=== PATIENT | female | born 1955 | race Caucasian/White ===

== ENCOUNTER 2020-06-03 07:58 | Outpatient (RCR) | payer MEDICARE, BC, SELFPAY ==
--- NOTE | 2020-06-03 09:04 | PTOPEVAL ---
Thank you for referring Margo Silvestre to [facility].? The patient is scheduled to be seen for therapy? __3__x/week for 9 visits. Please review, sign, date and return this plan of care JA. I agree with and certify that the following plan of care is medically necessary. Referring Physician Date Admitting Provider: Attending Provider: Kelly Engel, Referring Provider: *PT Outpatient Evaluation Start: 06/03/20 08:05 Freq: Status: Active Protocol: Document 06/03/20 08:06 ROX (Rec: 06/03/20 09:03 ROX [id number]) Therapy Assessment Status Assessment Status Assessment Status Evaluation Evaluation Information Problem Diagnosis 01/31/20 Subjective Information Pt. reports she started Query Text:As Reported By Patient/ experiencing sharp pain in the Family arch of the left foot. She reports that she has also noted pain on the outside of the left foot. She reports undergoing MRI which revealed inflammation in the left foot. She has not performed any specific exercise and only has been using ibuprofen. She reports that pain remains daily in the left foot. She states that her goal is to decrease her pain. Prior Level of Function Comments Additional Prior Level of Function Prior to January pt. had no Comments difficulty with walking. She reports she cannot walk around the block right now, but prior to the January onset she was able to walk for miles. Pain Assessment Pain Scale Pain Scale Used Numeric (1 - 10) Self Report Pain Assessment Left Foot/Feet Reported Pain Level 1 Pain Description Aching,Sharp Pain Frequency Continuous Lowest Pain Intensity 1 Greatest Pain Intensity 8 Pain Score Pain Score 1: Self Report Interventions Used Interventions Used By Clinicians Exercise,Manual Therapy Techniques Lower Extremity Range of Motion General Lower Extremity Range of Motion Gross Lower Extremity Range of Motion -ankle dorsiflexion with full Comments knee extension left 12 degrees -ankle dorsiflexion with full knee extension right 12 degrees -21 degrees left ankle
== END 2020-06-25 13:54 | disposition home or self-care (01) ==
LOC: CHSPT 07:58
PROVIDERS: PCP Family Medicine; Visit Provider Family Medicine
DX: M79.672 Pain in left foot (principal)
CPT/HCPCS: 97110; 97112; 97161; 97530

== ENCOUNTER 2022-09-02 10:59 | Outpatient (RCR) | payer MEDICARE, BC, SELFPAY ==
--- NOTE | 2022-09-02 11:47 | PTOPEVAL1 ---
Assessment and note entered by Cleveland Mallory Evaluation Information Assessment Status Evaluation Diagnosis s/p left TKA Onset 08/10/22 Subjective Information Pt. reports she underwent left TKA on 08/10/22. She has been doing HH therapy. She is currently using a cane. She has returned to driving short distances. She reports she still cannot walk any significant distance. She reports that her pain is currently a 3/10. She reports that pain worsens with activity. She states that her goal is to walk long distance and return to walking normal. Reported Pain Level Pain Score 3: Self Report Assessment PT Clinical Summary Pt. is a 67 year old female who enters the clinic post left TKA. She presents with impaired gait, impaired ROM, impaired strength, edema and impaired stre Plan of Care Interventions Electrical Stimulation,Gait Training,Hot Pack/Cold Pack,Intermittent Compression,Manual Therapy, Neuro Re-education,Patient/Caregiver Educati, Therapeutic Activities,Therapeutic Exercise Treatment Frequency and 3x/week x 12 visits Duration These treatments will address the objective and functional deficits as defined above. The patient will be advanced safely and appropriately in order for the patient to progress towards his/her prior level of function. Additional exercises will be introduced and as well as a comprehensive home exercise program upon discharge, if needed, ?to ensure carryover of functional gains achieved in the clinic. This treatment plan has been reviewed and agreement upon by the patient.
--- NOTE | 2022-09-23 07:44 | PTOPEVAL1 ---
Assessment and note entered by Cleveland Mallory Evaluation Information Assessment Status Progress Diagnosis s/p left TKA Onset 08/10/22 Subjective Information Pt. reports that she continues to improve. she notices some tightness early in the day but states that it will loosen up. Reported Pain Level Pain Score 2: Self Report Assessment PT Clinical Summary Pt. has attended a total of 10 treatment sessions. She demosntrates excellent progress in regards to strength and ROM. Recommend continued skilled PT for remaining 2 sessions of her POC to continue to improve strength at the left knee. Plan of Care Interventions Electrical Stimulation,Gait Training,Hot Pack/Cold Pack,Therapeutic Activities,Therapeutic Exercise Treatment Frequency and Continue with remaining 2 sessions on the POC Duration These treatments will address the objective and functional deficits as defined above. The patient will be advanced safely and appropriately in order for the patient to progress towards his/her prior level of function. Additional exercises will be introduced and as well as a comprehensive home exercise program upon discharge, if needed, ?to ensure carryover of functional gains achieved in the clinic. This treatment plan has been reviewed and agreement upon by the patient.
== END 2022-10-05 13:10 | disposition home or self-care (01) ==
LOC: CHSPT 10:59
DX: Z47.1 Aftercare following joint replacement surgery (principal); Z96.652 Presence of left artificial knee joint
CPT/HCPCS: 97014; 97110; 97140; 97161; 97530; G0283

== ENCOUNTER 2023-12-08 09:32 | Outpatient (RCR) | payer MEDICARE, BC, SELFPAY ==
--- NOTE | 2023-12-08 12:07 | OPREHPOC ---
Outpatient Therapy Plan of Care This is a Multidisciplinary Plan of Care that may contain components documented by all disciplines (PT, OT, and ST.) PT Problem 1 PT Problem #1 Knowledge Deficit PT Goal 1 Goal The patient will be independent in a home exercise program. Target Visit 4 PT Problem 2 PT Problem #2 Pain PT Goal 1 Goal The patient will report no greater than 3/10 low back and bilateral hip pain with daily activities. Target Visit 8 PT Problem 3 PT Problem #3 Impaired Gait PT Goal 1 Goal The patient will be able to ambulate 1,200 feet during the 6 minute walk test with 3/10 or less low back pain to improve community ambulation. Target Visit 8 PT Problem 4 PT Problem #4 Impaired Functional Mobil PT Goal 1 Goal The patient will demonstrate 25% or less self perceived disability per the Back Index. Target Visit 8 PT Problem 5 PT Problem #5 Impaired Strength PT Goal 1 Goal The patient will demonstrate the ability to lift 10 lbs from waist to shoulder without low back pain and proper body mechanics to perform light household lifting. Target Visit 8
--- NOTE | 2023-12-08 12:07 | PTOPEVAL1 ---
Assessment and note entered by Ashley Elliott, PT Evaluation Information Assessment Status Evaluation Diagnosis Low Back Pain Onset 12/01/23 Subjective Information Margo Silvestre reports she has had low back pain for about a year that has progressively gotten worse. She has tried the chiropractor having adjustments and the vibrator which did not help pain much. She has had a MRI that showed a lot of damage in her lumbar spine. She tried an injection with Dr. Cleveland into her right hip that did not help her pain at all. She was supposed to have an injection into the lumbar spine in July 2023 but the physician that was supposed to administer it before she could have it performed. She is now seeing Dr. Daugherty and he thinks she has sciatic nerve issues. She is having low back pain that radiates down the back of the right thigh and occasionally to the left thigh. She notes the pain comes and goes. She has difficulty walking or standing for long periods noting limitations with more than 15 minutes at a time. She notes relief of pain with sitting. She also notes difficulty lifting. Reported Pain Level Pain Score 2: Self Report Assessment PT Clinical Summary Margo Silvestre presents with chronic low back pain with radiation to the right > left LE. She has difficulty with standing or walking more than 15 minutes as well as lifting items. She objectively demonstrates tenderness along the L3-5 spinous processes, decreased and painful lumbar AROM, decreased core and hip strength, decreased bilateral quadriceps and piriformis flexibility, and decreased functional abilities. She will benefit from skilled PT to address these limitations and improve her function. Plan of Care Interventions Electrical Stimulation,Hot Pack/Cold Pack,Manual Therapy,Mechanical Traction,Neuro Re-education, Patient/Caregiver Educati,Therapeutic Activities, Therapeutic Exercise PT Services Indicated Yes Treatment Frequency and 2 times a week for 8 visits Duration These treatments will address the objective and functional deficits as defined above. The patient will be advanced safely and appropriately in order for the patient to progress towards his/her prior level of function. Additional exercises will be introduced and as well as a comprehensive home exercise program upon discharge, if needed, ?to ensure carryover of functional gains achieved in the clinic. This
--- NOTE | 2024-01-05 14:35 | OPREHPOC ---
Outpatient Therapy Plan of Care This is a Multidisciplinary Plan of Care that may contain components documented by all disciplines (PT, OT, and ST.) PT Problem 1 PT Problem #1 Knowledge Deficit PT Goal 1 Goal The patient will be independent in a home exercise program. Target Visit 4 Progress Met PT Problem 2 PT Problem #2 Pain PT Goal 1 Goal The patient will report no greater than 3/10 low back and bilateral hip pain with daily activities. Target Visit 16 Progress Partially Met Comment continue PT Problem 3 PT Problem #3 Impaired Gait PT Goal 1 Goal The patient will be able to ambulate 1,200 feet during the 6 minute walk test with 3/10 or less low back pain to improve community ambulation. Target Visit 16 Progress Partially Met Comment continue PT Problem 4 PT Problem #4 Impaired Functional Mobil PT Goal 1 Goal The patient will demonstrate 25% or less self perceived disability per the Back Index. Target Visit 16 Progress Partially Met Comment continue PT Problem 5 PT Problem #5 Impaired Strength PT Goal 1 Goal The patient will demonstrate the ability to lift 10 lbs from waist to shoulder without low back pain and proper body mechanics to perform light household lifting. Target Visit 16 Progress Not Met Comment continue
--- NOTE | 2024-01-05 14:35 | PTOPPROG ---
Assessment and note entered by Ashley Elliott, PT Evaluation Information Assessment Status Progress Diagnosis Low Back Pain Onset 12/01/23 Subjective Information Margo Silvestre reports her back pain has improved overall but is still present. She notes she can do more around the house as well. She saw her physician last week and he gave her an order to continue PT for 8 more visits. Assessment PT Clinical Summary Margo Silvestre has completed 8 skilled PT visits she is reporting overall improvements in mobility and pain but continues to have moderate pain in the lower back and right hip that continues to limit her standing and walking endurance. She is demonstrating improved lumbar lateral flexion and forward flexion AROM, improved hip strength, and less tenderness. She still has weakness in the hips and core muscles, decreased endurance with ambulation, and decreased standing tolerance. She will continue to benefit from skilled PT to further improve physical and functional limitations and reduce pain. Plan of Care Interventions Electrical Stimulation,Hot Pack/Cold Pack,Manual Therapy,Neuro Re-education,Patient/Caregiver Educati,Therapeutic Activities,Therapeutic Exercise PT Services Indicated Yes Treatment Frequency and 2 times a week for 8 visits Duration These treatments will address the objective and functional deficits as defined above. The patient will be advanced safely and appropriately in order for the patient to progress towards his/her prior level of function. Additional exercises will be introduced and as well as a comprehensive home exercise program upon discharge, if needed, ?to ensure carryover of functional gains achieved in the clinic. This treatment plan has been reviewed and agreement upon by the patient.
== END 2024-02-09 15:41 | disposition home or self-care (01) ==
LOC: CHSPT 09:32
DX: M54.50 Low back pain, unspecified (principal)
CPT/HCPCS: 97014; 97110; 97140; 97161; 97750; G0283

== ENCOUNTER 2024-09-26 10:50 | Outpatient (RCR) | payer MEDICARE, BC, SELFPAY ==
--- NOTE | 2024-09-26 13:12 | PTOPEVAL1 ---
Assessment and note entered by Yola Angel DPT Evaluation Information Assessment Status Evaluation Diagnosis falls ICD-10 Condition Codes (PT) Repeated falls R29.6 Onset 09/08/24 Subjective Information Patient reports she has been falling frequently. she reports when she stands up from sitting she feels dizzy. she reports she also does not lift her foot up high enough to step sometimes. she reports on Day last year she fell in the shower and fractured L2. She reports she has had back pain for years. Reported Pain Level Pain Score 0: Self Report Assessment PT Clinical Summary Mrs. Silvestre is a 69 year old female who presents to PT with recent falls. Patient demonstrates decreased LE strength, impaired gait mechanics and poor balance. She has difficulty completing house hold tasks and is at increased risk for falls. She would benefit from skilled PT to address impairments and return to PLOF. Plan of Care Interventions Gait Training,Hot Pack/Cold Pack,Manual Therapy, Neuro Re-education,Patient/Caregiver Education, Therapeutic Activities,Therapeutic Exercise PT Services Indicated Yes Treatment Frequency and 2x weekly for 10 visits Duration These treatments will address the objective and functional deficits as defined above. The patient will be advanced safely and appropriately in order for the patient to progress towards his/her prior level of function. Additional exercises will be introduced and as well as a comprehensive home exercise program upon discharge, if needed, ?to ensure carryover of functional gains achieved in the clinic. This treatment plan has been reviewed and agreement upon by the patient.
== END 2024-09-26 20:00 | disposition home or self-care (01) ==
LOC: CHSPT 10:50
PROVIDERS: Visit Provider Family Medicine
DX: R29.6 Repeated falls (principal)
CPT/HCPCS: 97110; 97161

== ENCOUNTER 2025-04-24 09:09 | Emergency (ER) | payer MEDICARE, BC, SELFPAY ==
--- NOTE | ~2025-04-24 | CT_ITS ---
EXAMINATION: CT brain wo [place], 04/24/2025 9:30 CDT HISTORY: Fall striking back ofhead, initial COA/LOC, david in, sore COMPARISON: No comparisons available. Technique: Axial images obtained of the brain without contrast. One or more of the following dose reduction techniques were used: automated exposure control, adjustment of the mA and/or kV according to patient size, use of iterative reconstruction technique. Findings: No acute infarct or parenchymal hemorrhage. No abnormal mass or mass effect. No midline shift. No extra-axial fluid collections. No hydrocephalus. Mastoid air cells unremarkable. Sinuses and orbits unremarkable. No acute fracture. Posterior subcutaneous soft tissue swelling with hemorrhage noted. Impression: 1.No acute intracranial abnormality. Reviewed, dictated and finalized at location A. Impression: 1.No acute intracranial abnormality.
[2025-04-24 09:09] VITALS: BP 160/85; PULSE 60; RESP 16; TEMP 36.2; O2SAT 100
--- NOTE | 2025-04-24 09:19 | ED.FALL ---
HPI - Fall General Chief Complaint: Fall Stated Complaint: fall Time Seen by Provider: 04/24/25 09:18 History of Present Illness HPI Narrative: LOST BALANCE, GROUND LEVEL FALL, STRUCK THE BACK OF HEAD ON THE GROUND, POSSIBLE 1-2 SECONDS LOSS OF CONSCIOUSNESS. CURRENTLY PATIENT IS AWAKE, ALERT ORIENTED X4, DENYING ANY SYMPTOMS EXCEPT OCCIPITAL LACERATION. SHE DENIES ANY HEADACHE NAUSEA, VOMITING, BACK PAIN OR NECK PAIN Related Data Allergies Allergy/AdvReac Type Severity Reaction Status Date / Time No Known Allergies Allergy Verified 04/24/25 09:16 Review of Systems Review of Systems: All systems reviewed & are unremarkable except as noted in HPI and below Exam Narrative: GENERAL APPEARANCE: WELL-DEVELOPED, WELL-NOURISHED SKIN: NORMAL COLOR HEAD: OCCIPITAL LACERATION X2. 1 CM EACH EYES: CLEAR CONJUNCTIVA ENT: OROPHARYNX NORMAL, EARS NORMAL, NOSE NORMAL NECK: SUPPLE, NONTENDER CHEST AND RESPIRATORY: AIRWAY PATENT, NO RESPIRATORY DISTRESS, NO ACCESSORY MUSCLE USE HEART: REGULAR RATE/RHYTHM ABDOMEN: SOFT, NONTENDER, NO ORGANOMEGALY, QUIET BOWEL SOUNDS VASCULAR: NORMAL PERIPHERAL PULSES, NORMAL CAPILLARY REFILL. MUSCULOSKELETAL: NORMAL RANGE OF MOTION, NONTENDER BACK NEUROLOGIC: ALERT AND ORIENTED ?3, TELETRAY OPERATOR IS NORMAL TESTED, NO GROSS MOTOR DEFICIT Course Vital Signs Vital signs: Vital Signs Temperature 36.2 C L 04/24/25 09:09 Pulse Rate 60 04/24/25 09:09 Respiratory Rate 16 04/24/25 09:09 Blood Pressure 160/85 H 04/24/25 09:09 Pulse Oximetry 100 04/24/25 09:09 Oxygen Delivery Room Air 04/24/25 09:09 Temperature 36.2 C L 04/24/25 09:57 Pulse Rate 60 04/24/25 09:57 Respiratory Rate 16 04/24/25 09:57 Blood Pressure 160/85 H 04/24/25 09:57 Pulse Oximetry 100 04/24/25 09:57 Oxygen Delivery Room Air 04/24/25 09:57 Procedures Laceration Laceration 1: Date: 04/24/25 Site: scalp Side (If applicable): left ( left occipital) Size (cm): 2 Description: linear Depth: simple, single layer Local Anesthetic: none Pre-repair: wound explored ====== Skin Level ====== Skin layer closed with: david ( 2 david) ====== Subcutaneous Layer ====== ====== Muscle Layer ====== ====== Tendon Layer ====== MDM - Fall MDM Narrative Medical decision making narrative: PATIENT CAME WITH OCCIPITAL LACERATION SECONDARY TO FALL UP-TO-DATE FOR TETANUS SHOT CT HEAD WITHOUT CONTRAST SHOWED NO ACUTE ABNORMALITY Differential Diagnosis Differential diagnosis: Likely concussion with loss of consciousness and concussion without loss of consciousness Imaging Data Radiologist's impression: Impressions Head CT 04/24/25 09:52 Impression: 1.No acute intracranial abnormality. Critical Care Time Critical Care Time Critical Care Time: No Discharge Plan Discharge Clinical Impression: Laceration of scalp Patient Disposition: Home Condition: Stable Instructions: Laceration (ED), Head Injury (ED) Additional Instructions: RETURN IF SYMPTOMS ARE WORSENING , CALL YOUR FAMILY PHYSICIAN FOR APPOINTMENT, TAKE TYLENOL NEEDED FOR ACHES AND PAIN, CONTINUE HOME MEDICATIONS. REMOVE DAVID AFTER 10 DAYS, TOPICAL NEOSPORIN Patient Language: Cambodian Follow-up/Referrals: Kelly Engel MD [Primary Care Provider, Family Practice]
--- NOTE | 2025-04-24 09:33 | PC.NURSE ---
ERP placed 2 david. 1 each in 2 separate 0.5cm lacerations to back of head.
[2025-04-24] MEDS: NEOMYCIN/POLYMYXIN/BACITRACIN OINTMENT PACKET 1 PACKET TOPICAL (09:49)
--- OUTSIDE RECORDS SUMMARY | 2025-04-24 09:49 | XMS_ITS | Clinical Summary ---
Author Organization [facility] Medical Office Building [address] Address [address] [place] [address] Care Team Providers Care Filler Leaf Cutter Long Name Role Phone Unknown, Notinfile Primary Care Provider Unavail Phil Franks MD Unavailable [phone] Allergies No known active allergies Medications amLODIPine (NORVASC) 10 mg tablet 2 Active atorvastatin (LIPITOR) 10 mg tablet 2 Active buPROPion XL (WELLBUTRIN XL) 300 mg 24 hr tablet Take 300 mg by mouth nightly 2 Active FLUoxetine (PROzac) 60 mg tablet Take 60 mg by mouth nightly 2 Active hydroCHLOROthiazide (HYDRODIURIL) 25 mg tablet Take 25 mg by mouth nightly 2 Active losartan (COZAAR) 100 mg tablet Take 100 mg by mouth nightly 2 Active lansoprazole (PREVACID) 30 mg capsule Take 30 mg by mouth nightly 2 Active metoprolol XL (TOPROL-XL) 200 mg extended release tablet Take 200 mg by mouth nightly 2 Active spironolactone (ALDACTONE) 25 mg tablet Take 25 mg by mouth nightly 2 Active buPROPion XL (WELLBUTRIN XL) 150 mg 24 hr tablet Take 150 mg by mouth nightly 2 Active calcium carbonate (OS-SWAPNA) 648 mg (260 mg elemental) tablet 260 mg nightly Active aspirin 325 mg enteric coated tabletIndications:D eep Vein Thrombosis Prevention Take 1 tablet (325 mg total) by mouth daily 42 tablet 3 Active ascorbic acid (VITAMIN C) 500 mg tablet,chewableIndi cations:Vitamin deficiency prevention Take 1 tablet/chew tab (500 mg total) by mouth daily 30 tablet/chew tab 3 Active celecoxib (CeleBREX) 200 mg capsuleIndications: Pain Take 1 capsule (200 mg total) by mouth 2 (two) times a day 84 capsule 3 Active ondansetron ODT (ZOFRAN-ODT) 4 mg disintegrating tabletIndications:n ausea and vomiting Take 1 tablet (4 mg total) by mouth every 6 (six) hours as needed for nausea or vomiting 20 tablet 2 3 Active senna-docusate (PERICOLACE) 8.6-50 mgIndications:const ipation Take 2 tablets by mouth 2 (two) times a day 60 tablet 2 3 Active oxyCODONE-acetamino phen (PERCOCET) 5-325 mg per tabletIndications:S /P TKR (total knee replacement) using cement, left Take 1-2 tablets by mouth every 4 (four) hours as needed for pain 40 tablet 3 Active Active Problems Problem Noted Date Diagnosed Date Aftercare following left knee joint replacement surgery 09/17/2022 Resolved Problems Problem Noted Date Diagnosed Date Resolved Date Primary osteoarthritis of left knee 07/17/2022 09/17/2022 Immunizations Immunization Administration Dates Next Due Influenza, Unspecified 05/02/2022 Surgical History Surgery Date Site/Laterality Comments HYSTERECTOMY CARPAL TUNNEL RELEASE TONSILLECTOMY ELBOW SURGERY TOE SURGERY Left PILONIDAL CYST DRAINAGE LAPAROSCOPY Medical History Medical History Date Comments Hypertension Hypercholesteremia Osteoarthritis Depression Motion sickness Family History Medical History Relation Name Comments Heart attack Father Heart disease Father Stroke Father Stroke Mother Arthritis Other Diabetes Other Heart disease Other Hypertension Other Stroke Other Diabetes Son Relation Name Status Comments Father Mother Other Son Social History Tobacco Use Types Packs/Day Years Used Date Smoking Tobacco: Never Passive Smoke Exposure: Never Smokeless Tobacco: Never Tobacco Cessation:Counseling Given: Not Answered AUDIT-C Answer Date Recorded Q1: How often do you have a drink containing alc ohol? Monthly or less 08/10/2022 Q2: How many drinks containi ng alcohol do you have on a typical day when you are drinking? 1 or 2 08/10/2022 Q3: How often do you have si x or more drinks on one occasion? 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 Gender Identity Not on file Sexual Orientation Not on file Obstetrics History Last Filed Vital Signs Vital Sign Reading Time Taken Comments Blood Pressure 151/82 09/22/2022 1:46 PM LASTING MACHINE OPERATOR Pulse 66 09/22/2022 1:46 PM LASTING MACHINE OPERATOR Temperature 35.6 C (96 F) 08/11/2022 11:15 AM LASTING MACHINE OPERATOR Respiratory Rate 18 08/11/2022 11:15 AM LASTING MACHINE OPERATOR Oxygen Saturation 99% 08/11/2022 11:15 AM LASTING MACHINE OPERATOR Inhaled Oxygen Concentration - - Weight 97.5 kg (215 lb) 09/22/2022 1:46 PM LASTING MACHINE OPERATOR Height 167.6 cm (5' 6) 09/22/2022 1:46 PM LASTING MACHINE OPERATOR Body Mass Index 34.7 09/22/2022 1:46 PM LASTING MACHINE OPERATOR Plan of Treatment Health Maintenance Due Date Last Done Comments Breast Cancer Screening-Mammogram 1954 Colon Cancer Screening-Colonoscopy 1954 Depression Screening 1954 Hepatitis C Screening 1954 Osteoporosis Screening-Bone Density Scan 1954 DTaP/Tdap/Td Vaccine (1 - Tdap) 1965 Hepatitis B Screening 1972 Pneumococcal vaccine 65+ (1 of 1 - PCV) 2004 Zoster Vaccine (1 of 2) 2004 Well Visit 65+ 2019 Fall Risk Assessment 08/11/2023 08/11/2022 Covid-19 Vaccine (3 - season) 04/02/202509/2020, 10/13/2020 Influenza Vaccine (#1) 2025 2, 06/14/2020, 05/02/2020 Medical Devices Implanted Type Area Combiner Device Identifier Shelf Expiration Date Model / Serial / Lot [employer] Cement Bone Simplex Gentamicin High Viscosity 40gm 6195-1-001 - [id number] Implanted:Qty: 1 on 08/10/2022 by Phil Mcarthur MD at [facility] Left: Knee [employer] 03/01/2024 6195-1-001 / / [id number] [employer] Cement Bone Simplex Gentamicin High Viscosity 40gm 6195-1-001 - [id number] Implanted:Qty: 1 on 08/10/2022 by Phil Mcarthur MD at [facility] Left: Knee [employer] 03/01/2024 6195-1-001 / / [id number] [employer] Attune S+ Cement Fix Bearing Knee 5 Baseplate Tibial [id number] - [id number] Implanted:Qty: 1 on 08/10/2022 by Phil Mcarthur MD at [facility] Left: Knee [employer] 06/01/2032 [id number] / / [id number] [employer] Attune Cemented Posterior Stabilize Knee Left 5 Component Femoral [id number] - [id number] Implanted:Qty: 1 on 08/10/2022 by Phil Mcarthur MD at [facility] Left: Knee [employer] 01/30/2032 [id number] / / [id number] [employer] Attune 35mm Cemented Medialize Knee Dome Patellar [employer]ox [employer]ile [id number] - [id number] Implanted:Qty: 1 on 08/10/2022 by Phil Mcarthur MD at [facility] Left: Knee [employer] 04/01/2027 [id number] / / [id number] [employer] Attune 7mm Posterior Stabilize Fix Bearing Knee 5 Insert Tibial [id number] - [id number] Implanted:Qty: 1 on 08/10/2022 by Phil Mcarthur MD at [facility] Left: Knee [employer] [id number] 04/01/2027 [id number] / / [id number] Insurance MEDICARE [employer] [place] [employer] [place] MED[place]ARE COUNTS INCLUDE 234 BEDS AT THE [facility] Advance Directives For more information, please contact: [phone] * Full Code (Latest Code Status on File) Date Activated Date Inactivated Comments 08/10/2022 1:14 PM 08/11/2022 5:56 PM Care Teams Filler Leaf Cutter Long Relationship Specialty Start Date End Date Unknown, Notinfile PCP - General 07/28/22 Phil Mcarthur MD [address] [place] [address] [address] [place] [address] Surgeon Orthopedic Surgery 08/11/22
[2025-04-24 09:57] VITALS: BP 160/85; PULSE 60; RESP 16; TEMP 36.2; O2SAT 100
--- OUTSIDE RECORDS SUMMARY | 2025-04-24 10:15 | XMS_ITS | Clinical Summary ---
Author Organization [facility] Medical Office Building [address] Address [address] [place] [address] Care Team Providers Care Superintendent Transmission Name Role Phone Unknown, Notinfile Primary Care Provider Unavail Phil Franks MD Unavailable Allergies No known active allergies Medications amLODIPine [...] on file Legal Sex Female 12:39 AM MANAGER INVESTMENT Gender Identity Not on file Sexual Orientation Not on file Obstetrics History Last Filed Vital Signs Vital Sign Reading Time Taken Comments Blood Pressure 151/82 09/22/2022 1:46 PM MANAGER INVESTMENT Pulse 66 09/22/2022 1:46 PM MANAGER INVESTMENT Temperature 35.6 C (96 F) 08/11/2022 11:15 AM MANAGER INVESTMENT Respiratory Rate 18 08/11/2022 11:15 AM MANAGER INVESTMENT Oxygen Saturation 99% 08/11/2022 11:15 AM MANAGER INVESTMENT Inhaled Oxygen Concentration - - Weight 97.5 kg (215 lb) 09/22/2022 1:46 PM MANAGER INVESTMENT Height 167.6 cm (5' 6) 09/22/2022 1:46 PM MANAGER INVESTMENT Body Mass Index 34.7 09/22/2022 1:46 PM MANAGER INVESTMENT Plan of Treatment Health Maintenance Due Date [...] 06/14/2020, 05/02/2020 Medical Devices Implanted Type Area Club Car Attendant Device Identifier Shelf Expiration Date Model / Serial / Lot [employer] Cement Bone Simplex Gentamicin High Viscosity 40gm 6195-1-001 - [id number] Implanted:Qty: 1 on 08/10/2022 by Phil Mcarthur MD at [facility] Left: Knee [employer] 03/01/2024 6195-1-001 / / [id number] [employer] Cement Bone Simplex Gentamicin High Viscosity 40gm 6195-1-001 - [id number] Implanted:Qty: 1 on 08/10/2022 by Phil Mcarthur MD at [facility] Left: Knee [employer] 03/01/2024 6195-1-001 / / [id number] [employer] Attune S+ Cement Fix Bearing Knee 5 Baseplate Tibial [id number] - [id number] Implanted:Qty: 1 on 08/10/2022 by Phil Mcarthur MD at [facility] Left: Knee [employer] 06/01/2032 [id number] / / [id number] [employer] Attune Cemented Posterior Stabilize Knee Left 5 Component Femoral [id number] - [id number] Implanted:Qty: 1 on 08/10/2022 by Phil Mcarthur MD at [facility] Left: Knee [employer] 01/30/2032 [id number] / / [id number] [employer] Attune 35mm Cemented Medialize Knee Dome Patellar Aox Sterile [id number] - [id number] Implanted:Qty: 1 on 08/10/2022 by Phil Mcarthur MD at [facility] Left: Knee [employer] 04/01/2027 [id number] / / [id number] [employer] Attune 7mm Posterior Stabilize Fix Bearing Knee 5 Insert Tibial [id number] - [id number] Implanted:Qty: 1 on 08/10/2022 by Phil Mcarthur MD at [facility] Left: Knee [employer] [id number] 04/01/2027 [id number] / / [id number] Insurance MEDICARE [employer] OR MEDICARE [employer] OR MEDICARE [facility] Advance Directives For more information, please contact: [phone] * Full Code (Latest Code Status on File) Date Activated Date Inactivated Comments 08/10/2022 1:14 PM 08/11/2022 5:56 PM Care Teams Superintendent Transmission Relationship Specialty Start Date End Date Unknown, Notinfile PCP - General 07/28/22 Phil Mcarthur MD [address] [place] [address] [address] [place] [address] Surgeon Orthopedic Surgery 08/11/22
--- OUTSIDE RECORDS SUMMARY | 2025-04-24 10:16 | XMS_ITS | Clinical Summary ---
Author Organization [facility] Address [address] [place] [address] Care Team Providers Care Builder'S Labourer Name Role Phone Lesia Engel MD Primary Care Provider [phone] Allergies No known active allergies Medications amlodipine 10 MG tablet Take 1 tablet (10 mg total) by mouth daily. 3 05/03/2019 Active buPROPion XL 300 MG 24 hr tablet Take 1 tablet (300 mg total) by mouth daily. 3 05/10/2019 Active fluoxetine 40 MG capsule Take 60 mg by mouth. 04/30/2014 Active hydrochlorothia zide 25 MG tablet Take 1 tablet (25 mg total) by mouth daily. 3 05/02/2019 Active lansoprazole 30 MG capsule Take 1 capsule (30 mg total) by mouth daily. 3 05/03/2019 Active losartan (COZAAR) 100 MG tablet Take 1 tablet (100 mg total) by mouth daily. Active metoprolol succinate ER 200 MG 24 hr tablet Take 1 tablet (200 mg total) by mouth daily. 04/01/2015 Active spironolactone 25 MG tablet Take 1 tablet (25 mg total) by mouth daily. 3 05/02/2019 Active BABY ASPIRIN OR Take 4 tablets by mouth daily. Active atorvastatin (LIPITOR) 40 MG tablet Take 1 tablet (40 mg total) by mouth daily. 03/28/2024 Active meloxicam (MOBIC) 15 MG tablet Take 1 tablet (15 mg total) by mouth daily. 03/16/2024 Active HYDROcodone-antonette taminophen (NORCO) 5-325 MG tabletIndicatio ns:Acute Pain < 7 Day Supply Take 1-2 tablets by mouth every 6 (six) hours as needed. Indications: Acute Pain < 7 Day Supply 21 tablet 04/02/2024 Active Active Problems Problem Noted Date Diagnosed Date Trochanteric bursitis of right hip 03/17/2023 Family History Medical History Relation Comments Heart Attack Father Hypertension Mother Stroke Mother Relation Status Comments Father Mother Social History Tobacco Use Types Packs/Day Years Used Date Smoking Tobacco: Never Smokeless Tobacco: Never Tobacco Cessation:Counseling Given: Not Answered Alcohol Use Standard Drinks/Week Comments Yes 3.3 (1 standard drink = 0.6 oz p ure alcohol) rare Comments No Sex and Gender Information Value Date Recorded Sex Assigned at Not on file 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 Gender Identity Not on file Sexual Orientation Not on file Last Filed Vital Signs Vital Sign Reading Time Taken Comments Blood Pressure 143/76 04/02/2024 11:16 AM CDT Pulse 61 04/02/2024 11:16 AM CDT Temperature 36.7 C (98.1 F) 04/02/2024 10:34 AM CDT Respiratory Rate 18 04/02/2024 11:1 6 AM CDT Oxygen Saturation 97% 04/02/2024 11: 16 AM CDT Inhaled Oxygen Concentration - - Weight 100.2 kg (220 lb 12.8 oz) 2023 10:34 AM CDT Height 165.1 cm (5' 5) 04/02/2024 10:3 4 AM CDT Body Mass Index 36.74 04/02/2024 10:34 AM CDT Plan of Treatment Health Maintenance Due Date Last Done Comments Hepatitis C 1972 DTaP, Tdap and Td Vaccines ( 1 - Tdap) 1973 Pneumococcal Vaccine: 50+ Years (1 of 1 - PCV) 2004 Zoster Vaccines (1 of 2) 2004 Annual Medicare Wellness Visit 2019 COVID-19 Vaccine (3 - 2024-2 6 season) 2025 11/01/2020, 10/13/2020 Mammogram Screening 11/23/2025 11/24/2023, 07/03/2019 RSV Immunization or 60+ Years (1 - 1-dose 75+ series) 2029 Colorectal Cancer Screening Colonoscopy (10 Years) 09/15/2029 09/15/2019, 09/15/2019 Dexa Scan (General) Completed 11/24/2023 Meningococcal B Vaccine Aged Out No l onger eligible based on patient's age to complete this topic Meningococcal Vaccine Aged Out No navi tres eligible based on patient's age to complete this topic RSV Immunizations Under 20 Months Aged Out No longer eligible b ased on patient's age to complete this topic Procedures Procedure Name Priority Date/Time Associated Diagnosis Comments MG SCREENING W ELISE CHRISTINA DIGI Routine 11/24/2023 2:14 PM CDT Visit for screening mammogram BONE DENSITY/DEXA Routine 11/24/2023 1:4 6 PM CDT Postmenopausal COLONOSCOPY 09/15/2019 9:05 AM STOCKROOM SELECTOR from Last 3 Months or Most Recently Relevant to Health Maintenance Results * MG SCREENING W ELISE CHRISTINA DIGI (11/24/2023 2:14 PM CDT) Anatomical Region Laterality Modality Breast Bilateral Mammography 11/24/2023 2:37 PM CDT Impressions 11/24/2023 2:38 PM CDT IMPRESSION: No suspicious change since the previous exams. Recommendation: 1: Routine Screening Bilateral in 1 Year Assessment: ACR BI-RADS 2 - BENIGN FINDING(S) Ordered By: LESIA ENGEL Interpreted By: Hayden Francis MD, 11/24/2023 2:37 PM Narrative 11/24/2023 2:38 PM CDT Examination: Digital screening mammogram with CAD. Clinical history: Asymptomatic patient presents for routine screening. Comparison: 07/03/2019, 02/15/2017, 01/23/2015, 05/01/2013. Technique: Bilateral digital mammograms. The exam was interpreted with the use of a computer-aided detection (CAD) system. Additional 3-D tomosynthesis images were acquired. Tissue density: The breast tissue is almost entirely composed of fat. Findings: The breast tissue is almost entirely composed of fat, with some minimal fibroglandular tissue present. Benign-appearing calcification noted. Benign-appearing intramammary lymph node on the right again evident. No suspicious mass, microcalcification or area of architectural distortion can be identified. From a mammographic standpoint, routine followup in one year would seem adequate. us Lesia Engel MD MAMMO Final Result * BONE DENSITY/DEXA (11/24/2023 1:46 PM CDT) Anatomical Region Laterality Modality Bone Bone Density 11/24/2023 2:31 PM CDT Impressions 11/24/2023 2:35 PM CDT Impression: 1. Consistent with osteopenia in the lumbar spine. 2. Consistent with osteoporosis in both hips. Ordered By: LESIA ENGEL Interpreted By: Hayden Francis MD, 11/24/2023 2:31 PM Narrative 11/24/2023 2:35 PM CDT Examination: DEXA Bone densitometry Clinical history: Postmenopausal. Osteoporosis screening. Comparison: None. Technique: DEXA bone mineral density evaluation was performed in the AP projection over the lumbar spine and over both hips in the AP projection utilizing standard imaging techniques. Assessment: The BMD measured at the AP spine L1-L4 is 0.857 g/cm2 with a T-score of -1.7 and a Z-score of 0.3. The patient is considered osteopenic according to World Health Organization (WHO) criteria. Bone density is between 10 and 25% below young normal. Fracture risk is moderate. Treatment is advised. The BMD measured at the femoral neck left is 0.562 g/cm2 with a T-score of -2.6 and a Z-score of -0.8. This patient is considered osteoporotic according to the world health organizations (WHO) criteria. Fracture risk is high. Pharmacological treatment, if not already prescribed should be considered. If pharmacological treatment is utilized, a followup bone density is recommended in one year to monitor response to therapy. The BMD measured at the femoral neck right is 0.533 g/cm2 with a T-score of -2.8 and a Z-score of -1.1. This patient is considered osteoporotic according to the world health organizations (WHO) criteria. Fracture risk is high. Pharmacological treatment, if not already prescribed should be considered. If pharmacological treatment is utilized, a followup bone density is recommended in one year to monitor response to therapy. FRAX 10-year fracture risk: Major Osteoporotic Fracture: 15%. Hip Fracture: 3.9%. Recommendations: All patients should ensure an adequate intake of dietary calcium and vitamin D. The NOF recommend adults under the age of 50 need 1000 mg of calcium and 400-800 IU of vitamin D daily. Effective therapy for the prevention and treatment of osteoporosis include biphosphonates. Follow-up: People with diagnosed cases of osteoporosis or at high risk for fracture should have regular bone mineral density test. For patients eligible for Medicare, routine testing is allowed once every 2 years. Testing frequency can be increased to one year for patients who have rapidly progressing disease, those who are receiving or discontinuing medical therapy to restore bone mass, or have additional risk factors. Based on these results, a followup exam is recommended in 1-2 years. Procedure Note Hayden Francis MD - 11/24/2023 Examination: DEXA Bone densitometry Clinical history: Postmenopausal. Osteoporosis screening. Comparison: None. Technique: DEXA bone mineral density evaluation was performed in the APprojection over the lumbar spine and over both hips in the AP projectionutilizing standard imaging techniques. Assessment: The BMD measured at the AP spine L1-L4 is 0.857 g/cm2 with a T-score of-1.7 and a Z-score of 0.3. The patient is considered osteopenicaccording to World Health Organization (WHO) criteria. Bone density isbetween 10 and 25% below young normal. Fracture risk is moderate.Treatment is advised. The BMD measured at the femoral neck left is 0.562 g/cm2 with a T-score of-2.6 and a Z-score of -0.8. This patient is considered osteoporoticaccording to the world health organizations (WHO) criteria. Fracture riskis high. Pharmacological treatment, if not already prescribed should beconsidered. If pharmacological treatment is utilized, a followup bonedensity is recommended in one year to monitor response to therapy. The BMD measured at the femoral neck right is 0.533 g/cm2 with a T-scoreof -2.8 and a Z-score of -1.1. This patient is considered osteoporoticaccording to the world health organizations (WHO) criteria. Fracture riskis high. Pharmacological treatment, if not already prescribed should beconsidered. If pharmacological treatment is utilized, a followup bonedensity is recommended in one year to monitor response to therapy. FRAX 10-year fracture risk: Major Osteoporotic Fracture: 15%. Hip Fracture: 3.9%. Recommendations: All patients should ensure an adequate intake of dietary calcium andvitamin D. The NOF recommend adults under the age of 50 need 1000 mg ofcalcium and 400-800 IU of vitamin D daily. Effective therapy for theprevention and treatment of osteoporosis include biphosphonates. Follow-up: People with diagnosed cases of osteoporosis or at high risk for fractureshould have regular bone mineral density test. For patients eligible forMedicare, routine testing is allowed once every 2 years. Testing frequencycan be increased to one year for patients who have rapidly progressingdisease, those who are receiving or discontinuing medical therapy torestore bone mass, or have additional risk factors. Based on these results, a followup exam is recommended in 1-2 years. Impression: 1. Consistent with osteopenia in the lumbar spine. 2. Consistent with osteoporosis in both hips. Ordered By: LESIA ENGEL Interpreted By: Hayden Francis MD, 11/24/2023 2:31 PM us Lesia Engel MD DEXA Final Result * COLONOSCOPY (09/15/2019 9:05 AM STOCKROOM SELECTOR) us Rivera Aj MD GI PROCEDURE ORDERABLES Final Result from Last 3 Months or Most Recently Relevant to Health Maintenance Insurance MEDICARE [employer] [facility] Care Teams Builder'S Labourer Relationship Specialty Start Date End Date Lesia Engel MD [address] [place] [id number] PCP - General FAMILY PRACTICE 06/28/19
--- OUTSIDE RECORDS SUMMARY | 2025-04-24 10:16 | XMS_ITS | Encounter Summary ---
Author Organization [facility] Address [facility] [place] [address] Care Team Providers Care Pararescue Manager Name Role Phone Kelly Engel MD Primary Care Provider [phone] Encounter Details Date Type Department Care Team (Late st Contact Info) Description 03/17/2023 [employer] [facility] Message Enc [facility] [address] [address] Bubba Cleveland MD [address] [place] [id number] Visit Follow Up Social History Tobacco Use Types Packs/Day Years Used Date Smoking Tobacco: Never Smokeless Tobacco: Never Alcohol Use Standard Drinks/Week Comments Yes 3.3 (1 standard drink = 0.6 oz p ure alcohol) rare Comments No Sex and Gender Information Value Date Recorded Sex Assigned at Not on file Legal Sex Female 10:59 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
--- OUTSIDE RECORDS SUMMARY | 2025-04-24 10:16 | XMS_ITS | Encounter Summary ---
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
== END 2025-04-24 09:57 | disposition home or self-care (01) ==
LOC: CHSED 09:32
PROVIDERS: Emergency Provider Emergency Medicine; PCP Family Medicine
DX: S01.01XA Laceration without foreign body of scalp, initial encounter (principal); W18.30XA Fall on same level, unspecified, initial encounter
CPT/HCPCS: 12001; 70450; 99284